=== PATIENT | male | born 1965 | race Caucasian/White ===

== ENCOUNTER 2017-02-20 10:07 | Emergency (ER) | payer MEDICARE ==
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
[2017-02-20] MEDS ORDERED: Norflex 60 MG/2 ML IM ONE (10:54)
[2017-02-20] MEDS ORDERED: TORAdol 30 mg Injection IM ONE (10:54)
--- NOTE | 2017-02-20 11:20 | XRAY ---
Indication: Chronic mid thoracic pain. Comparison: None Frontal/lateral thoracic spine demonstrates 12 typical rib-bearing thoracic vertebral segments with mild multilevel bridging/nonbridging endplate osteophytes, mild dextroscoliosis, and previous lower cervical fusion surgery. No other bony, articular, or soft tissue abnormalities. Impression: Nonacute thoracic spine with chronic features.
--- NOTE | 2017-02-20 11:24 | XRAY ---
Indication: Chronic low back pain. Right radiculopathy. Comparison: November 17, 2013. 5 views of the lumbar spine again demonstrates 5 lumbar vertebral segments, mild bilateral L5-S1 degenerative facet arthropathy, minimal L5-S1 disc space narrowing, and minimal L4/L5 endplate spurring. Again negative for acute fracture, subluxation, or pars interarticularis defect. Again noted cholecystomy clips. Impression: Stable nonacute lumbar spine with chronic features.
[2017-02-20] MEDS ORDERED: Norflex 60 MG/2 ML ONE (11:25)
[2017-02-20] MEDS ORDERED: TORAdol 30 mg Injection ONE (11:25)
[2017-02-20 12:14] VITALS: BP 128/84; PULSE 78; O2SAT 100
== END 2017-02-20 12:14 | disposition home or self-care (01) ==
LOC: ED 10:07
DX: M54.16 Radiculopathy, lumbar region (principal); G89.29 Other chronic pain
CPT/HCPCS: 72072; 72110; 99284; J1885; J2360

== ENCOUNTER 2017-08-07 13:51 | Emergency (ER) | payer MEDICARE ==
--- NOTE | 2017-08-07 14:18 | ERPHSYRPT ---
- History of Present Illness Time Seen by Provider: 08/07/17 14:13 Source: patient Exam Limitations: no limitations Patient Subjective Stated Complaint: PT states "Two days ago I started to get dizzy. I am also having some chest pressure with some slight pain in my left shoulder blade. The last time I felt this way I had low sodium." Triage Nursing Assessment: PT alert and oriented X 3, skin pale, cool, diphoretic. pt ambulates without difficulty, able to speak in full sentences, clear speech, CSM X 4. Physician History: The patient is a morbidly obese 51-year-old male complaining of dizziness for the past 3 days. He states he also has emotional lability where he wants to cry at any moment. He also has some mild chest pressure for the last 3 days as well. He thinks that it may be caused by his in her ear on the right because it a week ago he was having some right ear discomfort. He had the ear looked at by his doctor and nothing abnormal was found at that time. He says 5 years ago he had something similar to this dizziness when he had low sodium. He denies nausea or vomiting. He denies shortness of breath. His past medical history is significant for pulmonary sarcoidosis, coronary artery disease, [place], diabetes, hypertension, high cholesterol, and depression. Timing/Duration: day(s) (3) Severity: moderate Modifying Factors: Improves With: movement Associated Symptoms: chest pain (pressure), No nausea, No vomiting, No abdominal pain, No shortness of breath Allergies/Adverse Reactions: niacin Allergy (Mild, Verified 11/17/13 15:02) Penicillins Allergy (Mild, Verified 08/07/17 14:06) Home Medications: Amlodipine Besylate 5 mg [Norvasc 5 mg] 5 mg PO DAILY 02/15/13 [History] Lisinopril 10 mg [Zestril 10 MG] 10 mg PO DAILY 02/15/13 [History] Metformin HCl 1000 mg [Glucophage 1000 MG] 1,000 mg PO BID 02/15/13 [History] Metoprolol Succinate 100 mg [Toprol Xl 100 MG] 100 mg PO BID 02/15/13 [ History] Venlafaxine HCl [Effexor] 75 mg PO DAILY 11/17/13 [History] Empagliflozin [Jardiance] 10 mg PO 02/20/17 [History] Empagliflozin [Jardiance] 25 mg PO 02/20/17 [History] Exenatide Microspheres [Bydureon] 02/20/17 [History] Insulin Aspart [Novolog Flexpen] 40 units IM 02/20/17 [History] Pregabalin [Lyrica] 150 mg PO DAILY 02/20/17 [History] Rosuvastatin Calcium 20 mg PO DAILY 02/20/17 [History] Triamterene/Hydrochlorothiazid [Triamterene-Hctz 37.5-25 mg Cp] 02/20/17 [ History] Hx Tetanus, Diphtheria Vaccination/Date Given: Yes Hx Influenza Vaccination/Date Given: Yes Hx Pneumococcal Vaccination/Date Given: No Immunizations Up to Date: Yes - Review of Systems Constitutional: No Fever, No Chills Eyes: No Symptoms Ears, Nose, & Throat: Ear Pain Respiratory: No Cough, No Dyspnea Cardiac: Chest Pain Abdominal/Gastrointestinal: No Abdominal Pain, No Nausea, No Vomiting, No Diarrhea Genitourinary Symptoms: No Symptoms Musculoskeletal: No Back Pain, No Neck Pain Skin: No Rash Neurological: Dizziness Psychological: No Symptoms Endocrine: No Symptoms Hematologic/Lymphatic: No Symptoms Immunological/Allergic: No Symptoms All Other Systems: Reviewed and Negative - Past Medical History Pertinent Past Medical History: Yes Neurological History: No Pertinent History ENT History: No Pertinent History Cardiac History: Hypertension, Myocardial Infarction ([place]) Respiratory History: Sleep Apnea, Other Endocrine Medical History: Diabetes Type II, Hypothyroidism Musculoskeletal History: Degenerative Disk Disease GI Medical History: No Pertinent History History: No Pertinent History Psycho-Social History: Anxiety, Depression Male Reproductive Disorders: No Pertinent History Other Medical History: sarcadosis - Past Surgical History Past Surgical History: Yes Cardiac: No Pertinent History Gastrointestinal: Cholecystectomy Genitourinary: No Pertinent History Musculoskeletal: Orthopedic Surgery Male Surgical History: No Pertinent History Other Surgical History: C5-C6 NECK SURGERY. BILAT SHOULDER SURGERY. CARDIAC CATH X3. - Social History Smoking Status: Current every day smoker How long have you smoked: years Exposure to second hand smoke: Yes Alcohol Use: None Drug Use: none Patient Lives Alone: No Significant Family History: diabetes, hypertension - Nursing Vital Signs Nursing Vital Signs: Initial Vital Signs Temperature 98.9 F 08/07/17 13:55 Pulse Rate 90 08/07/17 13:55 Respiratory Rate 20 08/07/17 13:55 Blood Pressure 130/73 08/07/17 13:55 O2 Sat by Pulse Oximetry 97 08/07/17 13:55 Pain Scale Pain Intensity 2 - Physical Exam General Appearance: no apparent distress, alert Eye Exam: PERRL/EOMI, eyes nml inspection Ears, Nose, Throat Exam: normal ENT inspection, TMs normal, pharynx normal, moist mucous membranes Neck Exam: normal inspection, non-tender, supple, full range of motion Respiratory Exam: normal breath sounds, lungs clear, No respiratory distress Cardiovascular Exam: regular rate/rhythm, normal heart sounds, normal peripheral pulses Gastrointestinal/Abdomen Exam: soft, normal bowel sounds, No tenderness, No mass Rectal Exam: not done Back Exam: normal inspection, normal range of motion, No CVA tenderness, No vertebral tenderness Extremity Exam: normal inspection, normal range of motion, pelvis stable Neurologic Exam: alert, oriented x 3, cooperative, normal mood/affect, nml cerebellar function, nml station & gait, sensation nml, No motor deficits Skin Exam: normal color, warm, dry, No rash Lymphatic Exam: No adenopathy SpO2 Interpretation: normal SpO2: 96 Oxygen Delivery: Room Air - Course EKG Interpreted by Me: RATE, Sinus Rhythm, Left Hague Deviation, Right Bundle Branch Block, NORMAL ST-T - Radiology Exams Chest X-ray Interpretation: Teleradiologist Report, Negative (per Dr Guzmán.) Ordered Tests: Active Orders 24 hr Category Date Time Status Interventional Physician STAT Care 08/07/17 14:03 Active EKG-ER Only STAT Care 08/07/17 14:03 Active IV Insertion STAT Care 08/07/17 14:03 Active Pulse Oximetry (ED) STAT Care 08/07/17 14:03 Active CHEST 2 VIEWS (PA AND LAT) Stat Exams 08/07/17 14:18 Completed CBC W DIFF Stat Lab 08/07/17 14:15 Completed CMP Stat Lab 08/07/17 14:15 Completed Lactic Acid Stat Lab 08/07/17 14:35 Completed TROPONIN Q3H Lab 08/07/17 14:15 Completed TROPONIN Q3H Lab 08/07/17 17:30 Ordered TROPONIN Q3H Lab 08/07/17 20:30 Ordered TROPONIN Q3H Lab 08/07/17 23:30 Ordered TROPONIN Q3H Lab 08/08/17 02:30 Ordered UA W/RFX UR CULTURE Stat Lab 08/07/17 14:50 Completed Urine Triage Profile Stat Lab 08/07/17 14:18 Received Lab/Rad Data: Laboratory Result Diagrams 08/07/17 14:15 08/07/17 14:15 Laboratory Results 08/07/17 08/07/17 08/07/17 Range/Units 14:50 14:35 14:15 WBC (4.0-10.5) K/mm3 RBC (4.1-5.6) M/mm3 Hgb (12.5-18.0) gm/dl Hct (42-50) % MCV (78-100) fl MCH (26-32) pg MCHC (32-36) g/dl RDW (11.5-14.0) % Plt Count (150-450) K/mm3 MPV (6-9.5) fl Gran % (36.0-66.0) % Lymphocytes % (24.0-44.0) % Monocytes % (0.0-12.0) % Eosinophils % (0.00-5.0) % Basophils % (0.0-0.4) % Basophils # (0-0.4) Sodium (136-145) mEq/L Potassium (3.5-5.1) mEq/L Chloride (98-107) mEq/L Carbon Dioxide (21-32) mEq/L Anion Gap (5-15) MEQ/L BUN (9-20) mg/dL Creatinine (0.55-1.30) mg/dl Estimated GFR ML/MIN Glucose (70-110) MG/DL Lactic Acid 1.6 (0.4-2.0) Calcium (8.5-10.1) mg/dL Total Bilirubin (0.2-1.0) mg/dL AST (15-37) U/L ALT (12-78) U/L Alkaline Phosphatase (46-116) U/L Troponin I < 0.017 (0.000-0.056) ng/ml Serum Total Protein (6.4-8.2) gm/dL Albumin (3.4-5.0) g/dL Ur Collection Type VOID Urine Color YELLOW (YELLOW) Urine Appearance CLEAR (CLEAR) Urine pH 5.0 (5-6) Ur Specific [place] 1.015 (1.005-1.025) Urine Protein NEGATIVE (Negative) Urine Ketones NEGATIVE (NEGATIVE) Urine Blood NEGATIVE (0-5) Louis/ul Urine Nitrite NEGATIVE (NEGATIVE) Urine Bilirubin NEGATIVE (NEGATIVE) Urine Urobilinogen NORMAL (0-1) mg/dL Ur Leukocyte Esterase NEGATIVE (NEGATIVE) Urine Glucose 1000 (NEGATIVE) mg/dL Specimen Received 08/07/17 1450 08/07/17 08/07/17 Range/Units 14:15 14:15 WBC 5.5 (4.0-10.5) K/mm3 RBC 5.41 (4.1-5.6) M/mm3 Hgb 15.3 (12.5-18.0) gm/dl Hct 45.6 (42-50) % MCV 84.3 (78-100) fl MCH 28.3 (26-32) pg MCHC 33.6 (32-36) g/dl RDW 15.2 H (11.5-14.0) % Plt Count 188 (150-450) K/mm3 MPV 9.7 H (6-9.5) fl Gran % 58.7 (36.0-66.0) % Lymphocytes % 22.0 L (24.0-44.0) % Monocytes % 15.0 H (0.0-12.0) % Eosinophils % 3.8 (0.00-5.0) % Basophils % 0.5 (0.0-0.4) % Basophils # 0.03 (0-0.4) Sodium 142 (136-145) mEq/L Potassium 4.1 (3.5-5.1) mEq/L Chloride 105 (98-107) mEq/L Carbon Dioxide 25.1 (21-32) mEq/L Anion Gap 15.7 H (5-15) MEQ/L BUN 11 (9-20) mg/dL Creatinine 0.89 (0.55-1.30) mg/dl Estimated GFR > 60 ML/MIN Glucose 149 H (70-110) MG/DL Lactic Acid (0.4-2.0) Calcium 9.3 (8.5-10.1) mg/dL Total Bilirubin 0.60 (0.2-1.0) mg/dL AST 34 (15-37) U/L ALT 43 (12-78) U/L Alkaline Phosphatase 60 (46-116) U/L Troponin I (0.000-0.056) ng/ml Serum Total Protein 7.7 (6.4-8.2) gm/dL Albumin 4.0 (3.4-5.0) g/dL Ur Collection Type Urine Color (YELLOW) Urine Appearance (CLEAR) Urine pH (5-6) Ur Specific [place] (1.005-1.025) Urine Protein (Negative) Urine Ketones (NEGATIVE) Urine Blood (0-5) Louis/ul Urine Nitrite (NEGATIVE) Urine Bilirubin (NEGATIVE) Urine Urobilinogen (0-1) mg/dL Ur Leukocyte Esterase (NEGATIVE) Urine Glucose (NEGATIVE) mg/dL Specimen Received - Progress Progress: unchanged Counseled pt/family regarding: lab results, diagnosis, rad results - Departure Time of Disposition: 15:44 Departure Disposition: Home Clinical Impression: Labyrinthitis Condition: Stable Critical Care Time: No Referrals: PEYTON BISWSA [Primary Care Provider] - Additional Instructions: You have vertigo. Take meclizine 25 mg every 8 hours as needed for dizziness. Take prednisone 1 mg daily for 7 days. Follow-up in 2-3 days if no improvement. Prescriptions: Meclizine HCl 25 mg PO Q8H PRN PRN #10 tablet PRN Reason: Dizziness
[2017-08-07 14:42] LABS: BASOPHIL % 0.5 % (0.0-0.4); Eosinophil % 3.8 % (0.00-5.0); Granulocytes % 58.7 % (36.0-66.0); Mean Cell Volume 84.3 fl (78-100); Mean Corpuscular Hemoglobin 28.3 pg (26-32); Mean Platelet Volume 9.7 fl (6-9.5); Platelet Count 188 K/mm3 (150-450); Red Blood Count 5.41 M/mm3 (4.1-5.6); Red Cell Distribution Width 15.2 % (11.5-14.0); White Blood Count 5.5 K/mm3 (4.0-10.5)
[2017-08-07 14:58] LABS: ALKALINE PHOSPHATASE 60 U/L (46-116); ANION GAP 15.7 MEQ/L (5-15); BLOOD UREA NITROGEN 11 mg/dL (9-20); CHLORIDE 105 mEq/L (98-107); Carbon Dioxide 25.1 mEq/L (21-32); Glucose 149 MG/DL (70-110); Potassium 4.1 mEq/L (3.5-5.1); SGOT/AST 34 U/L (15-37); SGPT/ALT 43 U/L (12-78); SODIUM 142 mEq/L (136-145); Total Protein 7.7 gm/dL (6.4-8.2)
--- NOTE | 2017-08-07 15:04 | XRAY ---
Indication: Chest pressure and dizziness. Comparison: November 22, 2011. PA/lateral chest remains clear with incidental calcified granulomas. Heart is not enlarged. Vascularity normal. Bony thorax intact again with partially visualized lower cervical fusion surgery. Impression: Stable nonacute chest with chronic features.
[2017-08-07 15:08] VITALS: BP 107/67; PULSE 80
[2017-08-07 15:09] LABS: Bilirubin NEGATIVE (NEGATIVE); Collection Type VOID; Glucose 1000 mg/dL (NEGATIVE); Leukocyte Esterase NEGATIVE (NEGATIVE)
[2017-08-07 15:10] LABS: ADD URINE CULTURE? NO (NO); Blood NEGATIVE Ery/ul (0-5); COMPLETE URINE MICROSCOPIC? NO
[2017-08-07 15:49] VITALS: O2SAT 96
== END 2017-08-07 15:56 | disposition home or self-care (01) ==
LOC: ED 13:51
DX: H83.09 Labyrinthitis, unspecified ear (principal); R07.89 Other chest pain; M25.512 Pain in left shoulder; I10 Essential (primary) hypertension; I25.10 Atherosclerotic heart disease of native coronary artery without angina pectoris; I25.2 Old myocardial infarction; E78.00 Pure hypercholesterolemia, unspecified; F32.9 Major depressive disorder, single episode, unspecified; Z79.899 Other long term (current) drug therapy; Z79.84 Long term (current) use of oral hypoglycemic drugs
CPT/HCPCS: 36000; 36415; 71020; 80053; 80307; 81002; 83605; 84484; 85025; 93005; 93041; 99285

== ENCOUNTER 2017-09-17 19:54 | Emergency (ER) | payer MEDICARE ==
[2017-09-17] MEDS ORDERED: Norco 10/325 MG Tablet PO ONE (21:43)
[2017-09-17] MEDS ORDERED: NORCO 5/325 MG PO ONE (21:44)
[2017-09-17] MEDS ORDERED: KEFLEX 500 MG PO ONE (21:44)
[2017-09-17] MEDS ORDERED: KEFLEX 500 MG ONE (21:52)
[2017-09-17] MEDS ORDERED: Norco 10/325 MG Tablet ONE (21:52)
[2017-09-17] MEDS ORDERED: BACIGUENT PACKET ONE (22:00)
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
[2017-09-17] MEDS ORDERED: Adacel Vial IM ONE ×2 (23:32)
[2017-09-17 23:55] VITALS: BP 158/90; PULSE 80; O2SAT 97
== END 2017-09-17 23:55 | disposition home or self-care (01) ==
LOC: ED 19:54
PROC: 0HQCXZZ Repair Left Upper Arm Skin, External Approach (ICD-10-PCS; principal; 2017-09-17)
DX: S46.222A Laceration of muscle, fascia and tendon of other parts of biceps, left arm, initial encounter (principal); S41.152A Open bite of left upper arm, initial encounter; W54.0XXA Bitten by dog, initial encounter; Z79.899 Other long term (current) drug therapy; Z79.84 Long term (current) use of oral hypoglycemic drugs; Z79.4 Long term (current) use of insulin; I10 Essential (primary) hypertension; I25.2 Old myocardial infarction; E11.9 Type 2 diabetes mellitus without complications; E03.9 Hypothyroidism, unspecified
CPT/HCPCS: 12001; 90471; 90715; 99283; A9270-GY

== ENCOUNTER 2017-11-12 20:01 | Emergency (ER) | payer MEDICARE ==
[2017-11-12] MEDS ORDERED: SUBLIMAZE 100 MCG/2 ML IM ONE (20:34)
[2017-11-12] MEDS ORDERED: VALIUM 10 MG/2 ML SYRINGE IM ONE (20:36)
[2017-11-12 20:41] LABS: Collection Type CLEAN CATCH
[2017-11-12 20:42] LABS: ADD URINE CULTURE? NO (NO); Bilirubin NEGATIVE (NEGATIVE); Blood NEGATIVE Ery/ul (0-5); COMPLETE URINE MICROSCOPIC? NO; Glucose 1000 mg/dL (NEGATIVE); Leukocyte Esterase NEGATIVE (NEGATIVE)
--- NOTE | 2017-11-12 20:43 | ERPHSYRPT ---
- History of Present Illness Time Seen by Provider: 11/12/17 20:27 Source: patient Exam Limitations: no limitations Patient Subjective Stated Complaint: Pt sts right upper back pain x 3 days that radiates around to right chest and down right arm. Reports hx of degenerative disc disease and has similar happen approx 1 time per year. Denies specific injury. Reports the pain makes it hard for him to take a deep breath. Reports worse with palpation. Triage Nursing Assessment: Pt alert, oriented, answers all questions appropriately. Skin pink, warm, dry. Resps non-labored. Pt ambulatory to tx room , steady gait noted. Pain with palpation of right posterior shoulder area. Limited ROM noted right arm at shoulder. Physician History: Pt started c/o right upper and lower back pain since 2 days ago, after he woke up. He denies fall, other injury, he has had similar pain in the past, denies surgery or recent accident, no fever, chills, chest pain, SOB, productive cough , fever or vomiting. His right lower back pain has been radiating to his right buttock, denies leg weakness, numbness,. loss of bladder or bowel control. He tried Motrin today without any relief. Timing/Duration: day(s) (3) Method of Injury: unknown Quality: sharp Back Pain Location: T-spine, lumbar spine Back Pain Radiation: buttocks Severity of Pain-Max: severe Severity of Pain-Current: severe Modifying Factors: Improves With: immobilization, movement Associated Symptoms: No fever, No urinary incontinence, No loss of bowel control , No nausea, No vomiting, No problems urinating, No sensory/motor loss Previous symptoms: same symptoms as today Allergies/Adverse Reactions: niacin Allergy (Mild, Verified 11/12/17 20:29) Penicillins Allergy (Mild, Verified 11/12/17 20:29) Home Medications: Amlodipine Besylate 5 mg [Norvasc 5 mg] 5 mg PO DAILY 02/15/13 [History] Lisinopril 10 mg [Zestril 10 MG] 10 mg PO DAILY 02/15/13 [History] Metformin HCl 1000 mg [Glucophage 1000 MG] 1,000 mg PO BID 02/15/13 [History] Metoprolol Succinate 100 mg [Toprol Xl 100 MG] 100 mg PO BID 02/15/13 [ History] Venlafaxine HCl [Effexor] 75 mg PO DAILY 11/17/13 [History] Empagliflozin [Jardiance] 10 mg PO 02/20/17 [History] Empagliflozin [Jardiance] 25 mg PO 02/20/17 [History] Exenatide Microspheres [Bydureon] 02/20/17 [History] Insulin Aspart [Novolog Flexpen] 40 units IM 02/20/17 [History] Pregabalin [Lyrica] 150 mg PO DAILY 02/20/17 [History] Rosuvastatin Calcium 20 mg PO DAILY 02/20/17 [History] Triamterene/Hydrochlorothiazid [Triamterene-Hctz 37.5-25 mg Cp] 02/20/17 [ History] Hx Tetanus, Diphtheria Vaccination/Date Given: Yes Hx Influenza Vaccination/Date Given: Yes Hx Pneumococcal Vaccination/Date Given: No Immunizations Up to Date: Yes - Review of Systems Constitutional: No Symptoms Musculoskeletal: Back Pain All Other Systems: Reviewed and Negative - Past Medical History Pertinent Past Medical History: Yes Neurological History: No Pertinent History ENT History: No Pertinent History Cardiac History: Hypertension, Myocardial Infarction ([place]) Respiratory History: Sleep Apnea, Other Endocrine Medical History: Diabetes Type II, Hypothyroidism Musculoskeletal History: Degenerative Disk Disease GI Medical History: No Pertinent History History: No Pertinent History Psycho-Social History: Anxiety, Depression Male Reproductive Disorders: No Pertinent History Other Medical History: sarcadosis - Past Surgical History Past Surgical History: Yes Cardiac: No Pertinent History Gastrointestinal: Cholecystectomy Genitourinary: No Pertinent History Musculoskeletal: Orthopedic Surgery Male Surgical History: No Pertinent History Other Surgical History: C5-C6 NECK SURGERY. BILAT SHOULDER SURGERY. CARDIAC CATH X3. - Social History Smoking Status: Current every day smoker How long have you smoked: 0.5 Exposure to second hand smoke: No Alcohol Use: None Drug Use: none Patient Lives Alone: No Significant Family History: diabetes, hypertension - Nursing Vital Signs Nursing Vital Signs: Initial Vital Signs Temperature 99.5 F 11/12/17 20:18 Pulse Rate 90 11/12/17 20:18 Respiratory Rate 20 11/12/17 20:18 Blood Pressure 176/92 11/12/17 20:18 O2 Sat by Pulse Oximetry 97 11/12/17 20:18 Pain Scale Pain Intensity [Right Upper 10 Back] Pain Intensity 5 - Physical Exam General Appearance: no apparent distress Eye Exam: eyes nml inspection Ears, Nose, Throat Exam: normal ENT inspection Neck Exam: normal inspection, non-tender, supple Respiratory Exam: normal breath sounds, lungs clear, airway intact, No chest tenderness Cardiovascular Exam: regular rate/rhythm, normal heart sounds, normal peripheral pulses, No murmur Gastrointestinal Exam: soft, normal bowel sounds, No tenderness, No distention, No mass, No guarding Back Exam: normal inspection, decreased range of motion, muscle spasm (right paralumbar, parathotracic area), other (positive straight leg raising on right at 25 degrees, DTR: 3+ equal bilaterally.), No CVA tenderness, No vertebral tenderness, No rash Extremity Exam: normal inspection, No calf tenderness, No deformities, No christine' s sign, No swelling Neurologic Exam: alert, oriented x 3, cooperative, early childhood specialist II-XII nml as tested, normal mood/affect, No motor deficits Skin Exam: normal color, warm, dry, No rash SpO2: 97 Oxygen Delivery: Room Air - Course Nursing assessment & vital signs reviewed: Yes EKG Interpreted by Me: RATE, Left [place] Deviation, Right Bundle Branch Block, Non -specific ST Changes - Radiology Exams Chest X-ray Interpretation: Interpreted by me, Negative L-Spine X-ray Interpretation: Interpreted by me, Other (DJD) - CT Exams Chest CT Interpretation: Negative Ordered Tests: Active Orders 24 hr Category Date Time Status Clean Catch Urine Specimen STAT Care 11/12/17 22:15 Active EKG-ER Only STAT Care 11/12/17 20:40 Active CHEST 2 VIEWS (PA AND LAT) Stat Exams 11/12/17 21:13 Taken CHEST WITH CONTRAST [CT] Stat Exams 11/12/17 22:04 Taken LUMBAR LIMITED (2 OR 3 VIEWS) Stat Exams 11/12/17 20:35 Taken CBC W DIFF Stat Lab 11/12/17 21:28 Completed CMP Stat Lab 11/12/17 21:28 Completed D-DIMER QUANTITATION Stat Lab 11/12/17 21:28 Completed PROTIME WITH INR Stat Lab 11/12/17 21:28 Completed TROPONIN Q3H Lab 11/12/17 21:28 Completed UA W/RFX UR CULTURE Stat Lab 11/12/17 20:40 Completed Urine Triage Profile Stat Lab 11/12/17 20:40 Completed Medication Summary Discontinued Medications Generic Name Dose Route Start Last Admin Trade Name Emerald PRN Reason Stop Dose Admin Diazepam 5 mg 11/12/17 20:36 11/12/17 20:51 Valium 10 Mg/2 Ml Syringe IM 11/12/17 20:37 Not Given STAT ONE Fentanyl Citrate 75 mcg 11/12/17 20:34 11/12/17 21:09 Sublimaze 100 Mcg/2 Ml IM 11/12/17 20:35 75 mcg STAT ONE Administration Fentanyl Citrate Confirm 11/12/17 20:53 Sublimaze 100 Mcg/2 Ml Administered 11/12/17 20:54 Dose 100 mcg .ROUTE .STK-MED ONE Fentanyl Citrate 50 mcg 11/12/17 22:03 11/12/17 22:10 Sublimaze 100 Mcg/2 Ml IV 11/12/17 22:04 50 mcg STAT ONE Administration Fentanyl Citrate Confirm 11/12/17 22:08 Sublimaze 100 Mcg/2 Ml Administered 11/12/17 22:09 Dose 100 mcg .ROUTE .STK-MED ONE Sodium Chloride 1,000 mls @ 999 mls/hr 11/12/17 22:05 11/12/17 22:10 Sodium Chloride 0.9% 1000 Ml IV 11/12/17 23:05 999 mls/hr .Q1H1M STA Administration Sodium Chloride Confirm 11/12/17 22:08 Sodium Chloride 0.9% 1000 Ml Administered 11/12/17 22:09 Dose 1,000 mls @ ud .ROUTE .STK-MED ONE Orphenadrine Citrate 60 mg 11/12/17 20:49 11/12/17 21:09 Norflex 60 Mg/2 Ml IM 11/12/17 20:50 60 mg STAT ONE Administration Orphenadrine Citrate Confirm 11/12/17 20:53 Norflex 60 Mg/2 Ml Administered 11/12/17 20:54 Dose 60 mg .ROUTE .STK-MED ONE Lab/Rad Data: Laboratory Result Diagrams 11/12/17 21:28 11/12/17 21:28 Laboratory Results 11/12/17 11/12/17 11/12/17 Range/Units 21:28 21:28 21:28 WBC (4.0-10.5) K/mm3 RBC (4.1-5.6) M/mm3 Hgb (12.5-18.0) gm/dl Hct (42-50) % MCV (78-100) fl MCH (26-32) pg MCHC (32-36) g/dl RDW (11.5-14.0) % Plt Count (150-450) K/mm3 MPV (6-9.5) fl Gran % (36.0-66.0) % Lymphocytes % (24.0-44.0) % Monocytes % (0.0-12.0) % Eosinophils % (0.00-5.0) % Basophils % (0.0-0.4) % Basophils # (0-0.4) INR 1.01 (0.8-3.0) D-Dimer 705.78 H* (0-500) ng/mL Sodium 141 (136-145) mEq/L Potassium 3.7 (3.5-5.1) mEq/L Chloride 106 (98-107) mEq/L Carbon Dioxide 28.1 (21-32) mEq/L Anion Gap 10.7 (5-15) MEQ/L BUN 17 (9-20) mg/dL Creatinine 1.04 (0.55-1.30) mg/dl Estimated GFR > 60 ML/MIN Glucose 158 H (70-110) MG/DL Calcium 9.0 (8.5-10.1) mg/dL Total Bilirubin 0.30 (0.2-1.0) mg/dL AST 16 (15-37) U/L ALT 28 (12-78) U/L Alkaline Phosphatase 57 (46-116) U/L Troponin I < 0.017 (0.000-0.056) ng/ml Serum Total Protein 6.9 (6.4-8.2) gm/dL Albumin 3.4 (3.4-5.0) g/dL Ur Collection Type Urine Color (YELLOW) Urine Appearance (CLEAR) Urine pH (5-6) Ur Specific Queen (1.005-1.025) Urine Protein (Negative) Urine Ketones (NEGATIVE) Urine Blood (0-5) Louis/ul Urine Nitrite (NEGATIVE) Urine Bilirubin (NEGATIVE) Urine Urobilinogen (0-1) mg/dL Ur Leukocyte Esterase (NEGATIVE) Urine Culture Reflexed (NO) Urine Glucose (NEGATIVE) mg/dL Urine Opiates Level (NEGATIVE) Ur Methadone (NEGATIVE) Urine Barbiturates (NEGATIVE) Ur Phencyclidine (PCP) (NEGATIVE) Urine Amphetamine (NEGATIVE) U Benzodiazepine Level (NEGATIVE) Urine Cocaine (NEGATIVE) Urine Marijuana (THC) (NEGATIVE) Specimen Received 11/12/17 11/12/17 11/12/17 Range/Units 21:28 20:40 20:40 WBC 7.3 (4.0-10.5) K/mm3 RBC 4.69 (4.1-5.6) M/mm3 Hgb 13.4 (12.5-18.0) gm/dl Hct 40.8 L (42-50) % MCV 87.0 (78-100) fl MCH 28.6 (26-32) pg MCHC 32.8 (32-36) g/dl RDW 14.5 H (11.5-14.0) % Plt Count 185 (150-450) K/mm3 MPV 9.8 H (6-9.5) fl Gran % 68.1 H (36.0-66.0) % Lymphocytes % 15.3 L (24.0-44.0) % Monocytes % 13.4 H (0.0-12.0) % Eosinophils % 2.7 (0.00-5.0) % Basophils % 0.5 (0.0-0.4) % Basophils # 0.04 (0-0.4) INR (0.8-3.0) D-Dimer (0-500) ng/mL Sodium (136-145) mEq/L Potassium (3.5-5.1) mEq/L Chloride (98-107) mEq/L Carbon Dioxide (21-32) mEq/L Anion Gap (5-15) MEQ/L BUN (9-20) mg/dL Creatinine (0.55-1.30) mg/dl Estimated GFR ML/MIN Glucose (70-110) MG/DL Calcium (8.5-10.1) mg/dL Total Bilirubin (0.2-1.0) mg/dL AST (15-37) U/L ALT (12-78) U/L Alkaline Phosphatase (46-116) U/L Troponin I (0.000-0.056) ng/ml Serum Total Protein (6.4-8.2) gm/dL Albumin (3.4-5.0) g/dL Ur Collection Type CLEAN CATCH Urine Color YELLOW (YELLOW) Urine Appearance CLEAR (CLEAR) Urine pH 7.0 (5-6) Ur Specific Queen 1.010 (1.005-1.025) Urine Protein NEGATIVE (Negative) Urine Ketones NEGATIVE (NEGATIVE) Urine Blood NEGATIVE (0-5) Louis/ul Urine Nitrite NEGATIVE (NEGATIVE) Urine Bilirubin NEGATIVE (NEGATIVE) Urine Urobilinogen NORMAL (0-1) mg/dL Ur Leukocyte Esterase NEGATIVE (NEGATIVE) Urine Culture Reflexed NO (NO) Urine Glucose 1000 (NEGATIVE) mg/dL Urine Opiates Level NEG. (NEGATIVE) Ur Methadone NEG. (NEGATIVE) Urine Barbiturates NEG. (NEGATIVE) Ur Phencyclidine (PCP) NEG. (NEGATIVE) Urine Amphetamine NEG. (NEGATIVE) U Benzodiazepine Level NEG. (NEGATIVE) Urine Cocaine NEG. (NEGATIVE) Urine Marijuana (THC) POS. (NEGATIVE) Specimen Received [id number] - Progress Progress: improved Progress Note: 11/12/17 23:56 Pt has been comfortable, pain improved, denies chest pain or shortness of breath , no fever. I discussed our results with him and his , and the plan to discharge him. He has appointment with his doctor in 2 days, on Sunday. All questions answered, he is stable to be discharged, suggested to rest x 2-3 days , apply moist heat to painful muscles, return if severe pain, shortness oif breath, or fever, otherwise follow up with PCP as scheduled. - Departure Time of Disposition: 23:58 Departure Disposition: Home Clinical Impression: Back muscle spasm, Lumbar radiculopathy, chronic Condition: Stable Critical Care Time: No Referrals: PEYTON BISWAS [Primary Care Provider] - Instructions: Low Back Pain, Back Pain With Sciatica Additional Instructions: Rest x 2-3 days, apply moist heat to painful muscles, return if severe pain, shortness of breath, vomiting, fever> 102 F! Follow up with your doctor as scheduled on Sunday, in 2 days! Do not take Metformin for 2 days ! Prescriptions: Tramadol HCl [Ultram 50 mg Tablet] 50 mg PO Q6H PRN PRN #10 tablet PRN Reason: Pain Cyclobenzaprine HCl [Flexeril] 10 mg PO TID #30 tablet
[2017-11-12] MEDS ORDERED: Norflex 60 MG/2 ML IM ONE (20:49)
[2017-11-12] MEDS ORDERED: SUBLIMAZE 100 MCG/2 ML ONE ×2 (20:53→22:08)
[2017-11-12] MEDS ORDERED: Norflex 60 MG/2 ML ONE (20:53)
[2017-11-12 21:35] LABS: BASOPHIL % 0.5 % (0.0-0.4); Eosinophil % 2.7 % (0.00-5.0); Granulocytes % 68.1 % (36.0-66.0); Lymphocytes % 15.3 % (24.0-44.0); Mean Corpuscular Hemoglobin 28.6 pg (26-32); Mean Platelet Volume 9.8 fl (6-9.5); Monocytes % 13.4 % (0.0-12.0); Platelet Count 185 K/mm3 (150-450); Red Blood Count 4.69 M/mm3 (4.1-5.6); Red Cell Distribution Width 14.5 % (11.5-14.0); White Blood Count 7.3 K/mm3 (4.0-10.5)
[2017-11-12 21:50] LABS: INR 1.01 (0.8-3.0); PROTIME 11.2 SECONDS (8.83-12.87)
[2017-11-12 21:53] LABS: ALBUMIN 3.4 g/dL (3.4-5.0); ALKALINE PHOSPHATASE 57 U/L (46-116); ANION GAP 10.7 MEQ/L (5-15); BLOOD UREA NITROGEN 17 mg/dL (9-20); CHLORIDE 106 mEq/L (98-107); Carbon Dioxide 28.1 mEq/L (21-32); Glucose 158 MG/DL (70-110); Potassium 3.7 mEq/L (3.5-5.1); SGOT/AST 16 U/L (15-37); SGPT/ALT 28 U/L (12-78); SODIUM 141 mEq/L (136-145); Total Protein 6.9 gm/dL (6.4-8.2)
[2017-11-12] MEDS ORDERED: SUBLIMAZE 100 MCG/2 ML IV ONE (22:03)
[2017-11-12] MEDS ORDERED: Sodium Chloride 0.9% 1000 ML 1,000 ML IV STA (22:05)
[2017-11-12] MEDS ORDERED: Sodium Chloride 0.9% 1000 ML 1,000 ML ONE (22:08)
[2017-11-12 23:31] VITALS: BP 137/76; PULSE 72
[2017-11-13 00:01] VITALS: O2SAT 97
--- NOTE | 2017-11-13 09:01 | XRAY ---
Indication: Short of breath, pain, and elevated d-dimer. Multiple contiguous axial images obtained through the chest using 80 cc Isovue 370 contrast and PE protocol. Comparison: None There is satisfactory opacification of the pulmonary arteries to include the lobar and segmental branches. No filling defect or pulmonary embolus. Heart is not enlarged. Aorta is normal in course and caliber. A few centimeter/subcentimeter mediastinal lymph nodes. 2.0 x 2.5 cm right subcarinal lymph node. Minimal right perihilar prominent lymph nodes, largest 1.6 x 1.5 cm. Examination of the lung parenchyma demonstrates minimal bilateral dependent atelectasis and minimal atelectasis/scarring in the right middle lobe and lingula. Right upper lobe calcified granuloma. No suspicious pulmonary mass, infiltrate, or effusion. Bony thorax intact with mild degenerative changes throughout the spine. Limited upper abdomen demonstrates fatty liver and previous cholecystectomy. Impression: 1. Negative pulmonary embolus. Scattered atelectasis/scarring and a calcified granuloma. No acute cardiopulmonary abnormalities. 2. Nonspecific minimal mediastinal and right hilar adenopathy. 3. Fatty liver. Comment: Preliminary interpretation was made by [facility]. No discrepancy. CT DI 28.13
--- NOTE | 2017-11-13 09:03 | XRAY ---
Indication: Right back/right shoulder spasms 3 days. History sarcoidosis. Comparison: August 07, 2017. PA/lateral chest remains clear with incidental calcified granuloma. Heart is not enlarged. Vascularity normal. Bony thorax intact again with mild degenerative changes and lower cervical fusion surgery. Impression: Stable nonacute chest with chronic features.
--- NOTE | 2017-11-13 09:06 | XRAY ---
Indication: Low back pain Comparison: February 20, 2017. 3 views of the lumbar spine unchanged again demonstrating minimal multilevel thoracolumbar endplate spurring, mild L5-S1 degenerative facet arthropathy, and minimal L5-S1 degenerative disc space narrowing. No new/acute findings.
== END 2017-11-13 00:12 | disposition home or self-care (01) ==
LOC: ED 20:01
DX: M62.830 Muscle spasm of back (principal); M54.16 Radiculopathy, lumbar region; G89.29 Other chronic pain; M54.6 Pain in thoracic spine; M54.5 Low back pain; Z79.899 Other long term (current) drug therapy; E11.9 Type 2 diabetes mellitus without complications; I10 Essential (primary) hypertension; I25.2 Old myocardial infarction; E03.9 Hypothyroidism, unspecified; Z79.84 Long term (current) use of oral hypoglycemic drugs; Z79.4 Long term (current) use of insulin
CPT/HCPCS: 36000; 36415; 71020; 71260; 72100; 80053; 80307; 81002; 84484; 85025; 85379; 85610; 93005; 96360; 96372; 99284; J2360; J3010

== ENCOUNTER 2021-03-02 06:00 | Day surgery (SDC) | payer MEDICARE ==
[2021-03-02] MEDS ORDERED: Lactated Ringers 1,000 ML IV SCH (07:00)
[2021-03-02] MEDS ORDERED: DIPRIVAN 200 MG/20 ML IV ONE (07:21)
[2021-03-02] MEDS ORDERED: Xylocaine-Mpf 2% 5 Ml Vial ONE (07:26)
--- NOTE | 2021-03-02 08:15 | OP ---
SURGERY DATE/TIME: 03/02/2021720 PREOPERATIVE DIAGNOSIS: Screening colonoscopy. POSTOPERATIVE DIAGNOSIS: Sigmoid colon polyps x4. PROCEDURE: Colonoscopy. SURGEON: Kirby Rose M.D. ANESTHESIA: MAC by Moi Renner CRNA. ESTIMATED BLOOD LOSS: Minimal. SPECIMENS: Four hot forceps polypectomies from the sigmoid colon. DESCRIPTION OF PROCEDURE: After informed written consent was obtained, the patient was taken to the endoscopy suite. He was placed in left lateral decubitus position. Anesthesia was titrated to desired level of consciousness. Digital rectal exam showed normal sphincter tone and no internal lesions. The scope was inserted into the rectum and sequentially traversed to the level of the cecum. The cecum was reached and verified with direct visualization of ileocecal valve. Upon withdrawal there were no obvious mucosal abnormalities but there were scattered diverticula encountered at the level of the sigmoid colon mostly. There were four small sessile polyps all in the distal sigmoid colon which were grasped with forceps cauterized and removed in its entirety and sent together for pathology in the same container due to the close proximity. Prior to withdrawal retroflexion showed no obvious internal lesions. The scope was removed and the patient was transferred to the recovery room in good condition.
[2021-03-02 08:36] VITALS: BP 125/91; PULSE 88; O2SAT 97
== END 2021-03-02 08:47 | disposition home or self-care (01) ==
LOC: SDC 06:00
PROVIDERS: ATTEND Family Medicine
DX: Z12.11 Encounter for screening for malignant neoplasm of colon (principal); E11.9 Type 2 diabetes mellitus without complications; I10 Essential (primary) hypertension; Z79.899 Other long term (current) drug therapy; K63.5 Polyp of colon; K57.30 Diverticulosis of large intestine without perforation or abscess without bleeding
CPT/HCPCS: 82947; 88305; J2704

== ENCOUNTER 2021-12-23 14:23 | Emergency (ER) | payer MEDICARE ==
[2021-12-23] MEDS ORDERED: solu-MEDROL 125 MG, Sterile H2O 10 ml 2 ML IV ONE ×2 (14:43)
[2021-12-23] MEDS ORDERED: HYDROCODONE-ACETAMIN 2.5-108/5 ML SOLUTION PO STA (14:43)
[2021-12-23] MEDS ORDERED: Sodium Chloride 0.9% 1000 ML 1,000 ML IV SCH (14:45)
[2021-12-23] MEDS ORDERED: solu-MEDROL ONE (14:56)
[2021-12-23] MEDS ORDERED: HYDROCODONE-ACETAMIN 2.5-108/5 ML SOLUTION ONE (14:56)
[2021-12-23] MEDS ORDERED: Sterile H2O 10 ml IJ ONE (14:56)
[2021-12-23] MEDS ORDERED: Sodium Chloride 0.9% 1000 ML 1,000 ML ONE (14:56)
--- NOTE | 2021-12-23 14:56 | ERPHSYRPT ---
- History of Present Illness Time Seen by Provider: 12/23/21 14:30 Source: patient Exam Limitations: no limitations Patient Subjective Stated Complaint: PT HERE FOR INCRESASE SOB, COUGH, WAS COVID POSITIVE 12/15 Triage Nursing Assessment: PT ARRIVED PER WC,ALERT, RESP EASY, FACE MASK IN PLACE, HAS CONGESTED SOUNDING COUGH, SKIN W/D/P Physician History: This is a 56-year-old overweight white male with a history of diabetes, hypertension, depression, elevated cholesterol, sarcoidosis and who was diagnosed 8 days ago with COVID-19 infection. His symptoms of cough and shortness of breath are worsening. He has not had any chest pain per se. He has no abdominal pain. He has no nausea vomiting or diarrhea. He arrives to the emergency department afebrile with a room air oxygenation of 98%. Timing/Duration: day(s) (8), worse Cough Quality/Degree: mild, dry cough Possible Cause: no prior episodes Modifying Factors: Improves With: activity, coughing Associated Symptoms: cough, shortness of breath (Mostly with exertion), No fever Allergies/Adverse Reactions: niacin Allergy (Mild, Verified 12/23/21 14:48) Anaphylactic Reaction states "had a real seizure" Penicillins Allergy (Mild, Verified 12/23/21 14:48) Hives at a young age Home Medications: Amlodipine Besylate 5 mg [Norvasc 5 mg] 5 mg PO BID 02/15/13 [History] Lisinopril 10 mg [Zestril 10 MG] 40 mg PO DAILY 02/15/13 [History] Metformin HCl 1000 mg [Glucophage 1000 MG] 1,000 mg PO BID 02/15/13 [History] Metoprolol Succinate 100 mg [Toprol Xl 100 MG] 50 mg PO BID 02/15/13 [History] Venlafaxine HCl [Effexor] 75 mg PO DAILY 11/17/13 [History] Pregabalin [Lyrica] 150 mg PO BID 02/20/17 [History] Atorvastatin Calcium [Lipitor] 20 mg PO DAILY 02/22/21 [History] Clonazepam 0.5 mg [Klonopin 0.5 MG] 0.5 mg PO UD 02/22/21 [History] Testosterone Cypionate 0.25 ml IM UD 02/22/21 [History] Triamterene/Hydrochlorothiazid [Triamterene-Hctz 37.5-25 mg Tb] 37.5 mg PO DAILY 02/22/21 [History] Venlafaxine HCl [Effexor Xr] 150 mg PO DAILY 02/22/21 [History] Hx Tetanus, Diphtheria Vaccination/Date Given: Yes Hx Influenza Vaccination/Date Given: Yes Hx Pneumococcal Vaccination/Date Given: Yes Immunizations Up to Date: Yes Travel Risk - International Travel Have you traveled outside of the country in past 3 weeks: No - Coronavirus Screening Are you exhibiting any of the following symptoms?: Yes Symptoms: Cough: New Onset, Shortness of Breath, Headaches/Body Aches/Fatigue - Vaccine Status Have you recieved a Covid-19 vaccination: Yes 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 - Review of Systems Constitutional: No Symptoms Eyes: No Symptoms Ears, Nose, & Throat: No Symptoms Respiratory: Cough, Dyspnea Cardiac: No Symptoms (With exertion) Abdominal/Gastrointestinal: No Symptoms Genitourinary Symptoms: No Symptoms Musculoskeletal: Arthralgias, Myalgias Skin: No Symptoms Neurological: No Symptoms Psychological: No Symptoms Endocrine: No Symptoms Hematologic/Lymphatic: No Symptoms Immunological/Allergic: No Symptoms All Other Systems: Reviewed and Negative - Past Medical History Pertinent Past Medical History: Yes Neurological History: No Pertinent History ENT History: No Pertinent History Cardiac History: Myocardial Infarction ([place]), Hypertension Respiratory History: Sleep Apnea, Other Endocrine Medical History: Diabetes Type II, Hypothyroidism Musculoskeletal History: Degenerative Disk Disease GI Medical History: No Pertinent History History: No Pertinent History Psycho-Social History: Depression, Anxiety Male Reproductive Disorders: No Pertinent History Other Medical History: sarcadosis - Past Surgical History Past Surgical History: Yes Neuro Surgical History: No Pertinent History Cardiac: No Pertinent History Respiratory: No Pertinent History Gastrointestinal: Cholecystectomy Genitourinary: No Pertinent History Musculoskeletal: Orthopedic Surgery Male Surgical History: No Pertinent History Other Surgical History: C4-C5 NECK SURGERY (fusion) . BILAT SHOULDER SURGERY( release of pinched nerves) CARDIAC CATH X3.( last one in 2018), L4, L5, S1 surgery - Social History Smoking Status: Current every day smoker How long have you smoked: 0.5 Exposure to second hand smoke: No Alcohol Use: None Drug Use: marijuana Patient Lives Alone: Yes Significant Family History: diabetes, hypertension - Nursing Vital Signs Nursing Vital Signs: Initial Vital Signs Respiratory Rate 18 12/23/21 14:24 O2 Sat by Pulse Oximetry 98 12/23/21 14:24 Pain Scale Pain Intensity 1 - Physical Exam General Appearance: no apparent distress, alert, anxiety, obese Eye Exam: PERRL/EOMI, eyes nml inspection Ears, Nose, Throat Exam: normal ENT inspection, pharynx normal, moist mucous membranes Neck Exam: normal inspection, non-tender, supple, full range of motion Respiratory Exam: normal breath sounds, lungs clear, airway intact, No chest tenderness, No respiratory distress Cardiovascular Exam: regular rate/rhythm, normal heart sounds, normal peripheral pulses Gastrointestinal/Abdomen Exam: soft, normal bowel sounds, No tenderness Rectal Exam: not done Back Exam: normal inspection, normal range of motion, No CVA tenderness, No vertebral tenderness Extremity Exam: normal inspection, normal range of motion, pelvis stable Neurologic Exam: alert, oriented x 3, cooperative, nutritional chemist II-XII nml as tested, normal mood/affect, nml cerebellar function, nml station & gait, sensation nml Skin Exam: normal color, warm, dry Lymphatic Exam: No adenopathy SpO2 Interpretation: normal SpO2: 98 O2 Delivery: Room Air - Course Nursing assessment & vital signs reviewed: Yes Ordered Tests: Active Orders 24 hr Category Date Time Status EKG-ER Only STAT Care 12/23/21 14:41 Active IV Insertion STAT Care 12/23/21 14:41 Active Isolation, Initiate & Maintain STAT Care 12/23/21 14:42 Active Pulse Oximetry (ED) STAT Care 12/23/21 14:41 Active CHEST 1 VIEW (PORTABLE) Stat Exams 12/23/21 14:55 Completed CHEST WITH CONTRAST [CT] Stat Exams 12/23/21 15:17 Completed BLOOD CULTURE Stat Lab 12/23/21 03:09 Received CBC W DIFF Stat Lab 12/23/21 14:45 Completed CMP Stat Lab 12/23/21 14:41 Completed D-DIMER QUANTITATIVE Stat Lab 12/23/21 14:45 Completed INFLUENZA A+B ROJAS Stat Lab 12/23/21 03:11 Completed Lactic Acid Stat Lab 12/23/21 14:49 Completed Tensas Screen Stat Lab 12/23/21 14:45 Completed TROPONIN Q3H Lab 12/23/21 14:45 Completed TROPONIN Q3H Lab 12/23/21 17:45 Ordered TROPONIN Q3H Lab 12/23/21 20:45 Ordered TROPONIN Q3H Lab 12/23/21 23:45 Ordered TROPONIN Q3H Lab 12/24/21 02:45 Ordered UA W/RFX UR CULTURE Stat Lab 12/23/21 14:42 Completed Medication Summary Generic Name Dose Route Start Last Admin Trade Name Freq PRN Reason Stop Dose Admin Sodium Chloride 1,000 mls @ 100 mls/hr 12/23/21 14:45 12/23/21 15:00 Sodium Chloride 0.9% 1000 Ml IV 01/22/22 14:44 100 mls/hr .Q10H BRYAN Administration Discontinued Medications Generic Name Dose Route Start Last Admin Trade Name Freq PRN Reason Stop Dose Admin Hydrocodone Bitart/Acetaminophen 10 ml 12/23/21 14:43 12/23/21 15:01 Hydrocodone/Acetaminophen 5 Ml Udcup PO 12/23/21 14:44 10 ml STAT STA Administration Hydrocodone Bitart/Acetaminophen Confirm 12/23/21 14:56 Hydrocodone/Acetaminophen 5 Ml Udcup Administered 12/23/21 14:57 Dose 10 ml .ROUTE .STK-MED ONE Methylprednisolone Sodium 0 mg 12/23/21 14:43 12/23/21 15:00 Succinate 125 mg/ Sterile IV 12/23/21 14:44 125 mg Water 2 ml STAT ONE Administration Methylprednisolone Sodium Succinate Confirm 12/23/21 14:56 Methylprednis Sod Succ 125 Mg/2 Ml Vial Administered 12/23/21 14:57 Dose 125 mg .ROUTE .STK-MED ONE Sterile Water Confirm 12/23/21 14:56 Water For Injection,Sterile 10 Ml Vial Administered 12/23/21 14:57 Dose 10 ml IJ .STK-MED ONE Lab/Rad Data: Laboratory Result Diagrams 12/23/21 14:45 12/23/21 14:41 Laboratory Results 12/23/21 12/23/21 12/23/21 Range/Units 14:49 14:45 14:45 WBC (4.0-10.5) K/mm3 RBC (4.1-5.6) M/mm3 Hgb (12.5-18.0) gm/dl Hct (42-50) % MCV (78-100) fl MCH (26-32) pg MCHC (32-36) g/dl RDW (11.5-14.0) % Plt Count (150-450) K/mm3 MPV (7.5-11.0) fl Gran % (36.0-66.0) % Eos # (Auto) (0-0.5) Absolute Lymphs (auto) (1.0-4.6) Absolute Monos (auto) (0.0-1.3) Lymphocytes % (24.0-44.0) % Monocytes % (0.0-12.0) % Eosinophils % (0.00-5.0) % Basophils % (0.0-0.4) % Absolute Granulocytes (1.4-6.9) Basophils # (0-0.4) D-Dimer (215-500) ng/mL Sodium (137-145) mmol/L Potassium (3.5-5.1) mmol/L Chloride (98-107) mmol/L Carbon Dioxide (22-30) mmol/L Anion Gap (5-15) MEQ/L BUN (9-20) mg/dL Creatinine (0.66-1.25) mg/dL Estimated GFR ML/MIN Glucose (74-106) mg/dL Lactic Acid 3.1 H (0.4-2.0) Calcium (8.4-10.2) mg/dL Total Bilirubin (0.2-1.3) mg/dL AST (17-59) U/L ALT (0-50) U/L Alkaline Phosphatase (38-126) U/L Troponin I < 0.012 (0.000-0.034) ng/mL Serum Total Protein (6.3-8.2) g/dL Albumin (3.5-5.0) g/dL Urine Color (YELLOW) Urine Appearance (CLEAR) Urine pH (5-6) Ur Specific [place] (1.005-1.025) Urine Protein (Negative) Urine Ketones (NEGATIVE) Urine Blood (0-5) Louis/ul Urine Nitrite (NEGATIVE) Urine Bilirubin (NEGATIVE) Urine Urobilinogen (0-1) mg/dL Ur Leukocyte Esterase (NEGATIVE) Urine WBC (Auto) (0-5) /HPF U Epithel Cells (Auto) (FEW) /HPF Urine Mucus (Auto) (NEGATIVE) /HPF Urine Culture Reflexed (NO) Urine Glucose (NEGATIVE) mg/dL Monoscreen NEGATIVE (Negative) Influenza Type A Ag (NEGATIVE) Influenza Type B Ag (NEGATIVE) Group A Strep Antibody (NEGATIVE) 12/23/21 12/23/21 12/23/21 Range/Units 14:45 14:45 14:42 WBC 7.1 (4.0-10.5) K/mm3 RBC 5.52 (4.1-5.6) M/mm3 Hgb 15.2 (12.5-18.0) gm/dl Hct 45.8 (42-50) % MCV 83.0 (78-100) fl MCH 27.5 (26-32) pg MCHC 33.2 (32-36) g/dl RDW 14.7 H (11.5-14.0) % Plt Count 260 (150-450) K/mm3 MPV 9.6 (7.5-11.0) fl Gran % 72.1 H (36.0-66.0) % Eos # (Auto) 0.11 (0-0.5) Absolute Lymphs (auto) 0.99 L (1.0-4.6) Absolute Monos (auto) 0.84 (0.0-1.3) Lymphocytes % 14.0 L (24.0-44.0) % Monocytes % 11.9 (0.0-12.0) % Eosinophils % 1.6 (0.00-5.0) % Basophils % 0.4 (0.0-0.4) % Absolute Granulocytes 5.11 (1.4-6.9) Basophils # 0.03 (0-0.4) D-Dimer 865 H* (215-500) ng/mL Sodium (137-145) mmol/L Potassium (3.5-5.1) mmol/L Chloride (98-107) mmol/L Carbon Dioxide (22-30) mmol/L Anion Gap (5-15) MEQ/L BUN (9-20) mg/dL Creatinine (0.66-1.25) mg/dL Estimated GFR ML/MIN Glucose (74-106) mg/dL Lactic Acid (0.4-2.0) Calcium (8.4-10.2) mg/dL Total Bilirubin (0.2-1.3) mg/dL AST (17-59) U/L ALT (0-50) U/L Alkaline Phosphatase (38-126) U/L Troponin I (0.000-0.034) ng/mL Serum Total Protein (6.3-8.2) g/dL Albumin (3.5-5.0) g/dL Urine Color YELLOW (YELLOW) Urine Appearance CLEAR (CLEAR) Urine pH 5.0 (5-6) Ur Specific [place] 1.020 (1.005-1.025) Urine Protein 30 (Negative) Urine Ketones TRACE (NEGATIVE) Urine Blood NEGATIVE (0-5) Louis/ul Urine Nitrite NEGATIVE (NEGATIVE) Urine Bilirubin SMALL (NEGATIVE) Urine Urobilinogen 2 (0-1) mg/dL Ur Leukocyte Esterase NEGATIVE (NEGATIVE) Urine WBC (Auto) 0-2 (0-5) /HPF U Epithel Cells (Auto) NONE (FEW) /HPF Urine Mucus (Auto) SLIGHT (NEGATIVE) /HPF Urine Culture Reflexed NO (NO) Urine Glucose NEGATIVE (NEGATIVE) mg/dL Monoscreen (Negative) Influenza Type A Ag (NEGATIVE) Influenza Type B Ag (NEGATIVE) Group A Strep Antibody (NEGATIVE) 12/23/21 12/23/21 12/23/21 Range/Units 14:41 03:11 03:11 WBC (4.0-10.5) K/mm3 RBC (4.1-5.6) M/mm3 Hgb (12.5-18.0) gm/dl Hct (42-50) % MCV (78-100) fl MCH (26-32) pg MCHC (32-36) g/dl RDW (11.5-14.0) % Plt Count (150-450) K/mm3 MPV (7.5-11.0) fl Gran % (36.0-66.0) % Eos # (Auto) (0-0.5) Absolute Lymphs (auto) (1.0-4.6) Absolute Monos (auto) (0.0-1.3) Lymphocytes % (24.0-44.0) % Monocytes % (0.0-12.0) % Eosinophils % (0.00-5.0) % Basophils % (0.0-0.4) % Absolute Granulocytes (1.4-6.9) Basophils # (0-0.4) D-Dimer (215-500) ng/mL Sodium 140 (137-145) mmol/L Potassium 3.9 (3.5-5.1) mmol/L Chloride 106 (98-107) mmol/L Carbon Dioxide 23 (22-30) mmol/L Anion Gap 15.9 H (5-15) MEQ/L BUN 7 L (9-20) mg/dL Creatinine 0.68 (0.66-1.25) mg/dL Estimated GFR > 60.0 ML/MIN Glucose 151 H (74-106) mg/dL Lactic Acid (0.4-2.0) Calcium 9.5 (8.4-10.2) mg/dL Total Bilirubin 0.80 (0.2-1.3) mg/dL AST 28 (17-59) U/L ALT 35 (0-50) U/L Alkaline Phosphatase 77 (38-126) U/L Troponin I (0.000-0.034) ng/mL Serum Total Protein 7.2 (6.3-8.2) g/dL Albumin 4.4 (3.5-5.0) g/dL Urine Color (YELLOW) Urine Appearance (CLEAR) Urine pH (5-6) Ur Specific [place] (1.005-1.025) Urine Protein (Negative) Urine Ketones (NEGATIVE) Urine Blood (0-5) Louis/ul Urine Nitrite (NEGATIVE) Urine Bilirubin (NEGATIVE) Urine Urobilinogen (0-1) mg/dL Ur Leukocyte Esterase (NEGATIVE) Urine WBC (Auto) (0-5) /HPF U Epithel Cells (Auto) (FEW) /HPF Urine Mucus (Auto) (NEGATIVE) /HPF Urine Culture Reflexed (NO) Urine Glucose (NEGATIVE) mg/dL Monoscreen (Negative) Influenza Type A Ag NEG (NEGATIVE) Influenza Type B Ag NEG (NEGATIVE) Group A Strep Antibody NOT DETECTED (NEGATIVE) - Progress Progress: improved, re-examined Air Movement: good Progress Note: 12/23/21 16:21 Chest x-ray shows no acute cardiopulmonary process. Chest CT with contrast shows no pulmonary embolus. There are changes consistent with sarcoidosis. No infiltrate present. Blood Culture(s) Obtained: Yes Antibiotics given: No Counseled pt/family regarding: lab results, diagnosis, need for follow-up, [place] - Departure Departure Disposition: Home Clinical Impression: COVID-19 virus infection Condition: Stable Critical Care Time: No Referrals: PEYTON HOPKINS [Primary Care Provider] - Follow up/PCP as directed Prescriptions: Hydrocodone/Acetaminophen [Hydrocodone-Acetamn 7.5-325/15] 10 ml PO Q8H PRN PRN #120 ml MDD 30 ml PRN Reason: Cough Prednisone 10 mg [Deltasone 10 mg] 10 mg PO TID #12 tablet
[2021-12-23 14:57] LABS: ALBUMIN 4.4 g/dL (3.5-5.0); ALKALINE PHOSPHATASE 77 U/L (38-126); ANION GAP 15.9 MEQ/L (5-15); BLOOD UREA NITROGEN 7 mg/dL (9-20); CHLORIDE 106 mmol/L (98-107); Calcium 9.5 mg/dL (8.4-10.2); Carbon Dioxide 23 mmol/L (22-30); Creatinine 1 0.68 mg/dL (0.66-1.25); EST GLOMERULAR FILTRATION RATE > 60.0 ML/MIN; Glucose 151 mg/dL (74-106); Potassium 3.9 mmol/L (3.5-5.1); SGOT/AST 28 U/L (17-59); SGPT/ALT 35 U/L (0-50); SODIUM 140 mmol/L (137-145); Total Protein 7.2 g/dL (6.3-8.2)
[2021-12-23 15:02] LABS: Absolute Neutrophil Ct (ANC) 5.11 (1.4-6.9); Basophil (Absolute #) 0.03 (0-0.4); Eosinophil % 1.6 % (0.00-5.0); Eosinophil (Absolute #) 0.11 (0-0.5); Hematocrit 45.8 % (42-50); Hemoglobin 15.2 gm/dl (12.5-18.0); Lymphocyte (Absolute #) 0.99 (1.0-4.6); Mean Corpuscular Hemoglobin 27.5 pg (26-32); Mean Corpuscular Hgb Concent. 33.2 g/dl (32-36); Mean Platelet Volume 9.6 fl (7.5-11.0); Monocyte (Absolute #) 0.84 (0.0-1.3); Monocytes % 11.9 % (0.0-12.0); Neutrophil % 72.1 % (36.0-66.0); Platelet Count 260 K/mm3 (150-450); Red Blood Count 5.52 M/mm3 (4.1-5.6); Red Cell Distribution Width 14.7 % (11.5-14.0); White Blood Count 7.1 K/mm3 (4.0-10.5)
--- NOTE | 2021-12-23 15:04 | XRAY ---
Indication: Short of breath. Positive Covid 19. History sarcoidosis. Comparison: November 12, 2017. Portable apical lordotic chest remains clear again with incidental tiny right lung calcified granuloma. Heart not enlarged for AP portable technique. Bony thorax intact again with mild degenerative changes and lower cervical fusion hardware. Impression: Continued nonacute chest with chronic features.
[2021-12-23 15:15] LABS: Appearance CLEAR (CLEAR); Bilirubin SMALL (NEGATIVE); Blood NEGATIVE Ery/ul (0-5); Glucose NEGATIVE (NEGATIVE); Ketones TRACE (NEGATIVE); Leukocyte Esterase NEGATIVE (NEGATIVE); Mucus SLIGHT /HPF (NEGATIVE); Nitrite NEGATIVE (NEGATIVE); Protein,Urine Dip 30 (Negative); Urobilinogen 2 mg/dL (0-1); WBC 0-2 /HPF (0-5)
[2021-12-23 15:53] LABS: INFLUENZA A NEG (NEGATIVE); INFLUENZA B NEG (NEGATIVE)
--- NOTE | 2021-12-23 16:11 | XRAY ---
Indication: Short of breath. Positive Covid 19. Elevated d-dimer. History of sarcoidosis. Multiple contiguous axial images obtained through the chest using Isovue 370 contrast and PE protocol. Comparison: November 12, 2017. There is good opacification of the pulmonary arteries to include the lobar and segmental branches. No pulmonary embolus. Heart not enlarged. Aorta is normal in course and caliber. Minimally enlarging prominent bilateral hilar adenopathy favoring clinically reported sarcoidosis. Largest right hilar adenopathy measures 1.7 x 2.4 cm and the largest left measures 2.4 x 1.6 cm. Stable tiny right suprahilar calcified nodes. Lungs inflated with again minimal right middle lobe subsegmental atelectasis/scarring and tiny right upper lobe peripheral calcified granuloma. No suspicious pulmonary mass, infiltrate, or effusion. Bony thorax intact again with mild degenerative changes throughout the spine. Limited upper abdomen again demonstrates fatty liver and cholecystectomy clips. Impression: 1. Continued negative pulmonary embolus. 2. Minimally enlarging prominent bilateral hilar adenopathy favoring clinically reported sarcoidosis. 3. Again incidental fatty liver, chronic bony findings, and old granulomatous disease.
[2021-12-23 16:15] VITALS: BP 194/109; PULSE 86
[2021-12-23 16:22] VITALS: O2SAT 98
[2021-12-23] MEDS ORDERED: Zofran 4 MG/2 ML VIAL ONE (16:31)
[2021-12-23] MEDS ORDERED: Zofran 4 MG/2 ML VIAL IV ONE (16:32)
== END 2021-12-23 16:35 | disposition home or self-care (01) ==
LOC: ED 14:23
DX: U07.1 COVID-19 (principal); R05.9 Cough, unspecified; R06.02 Shortness of breath; E11.9 Type 2 diabetes mellitus without complications; Z79.84 Long term (current) use of oral hypoglycemic drugs; I10 Essential (primary) hypertension; F32.A Depression, unspecified; E78.5 Hyperlipidemia, unspecified; D86.9 Sarcoidosis, unspecified; Z79.899 Other long term (current) drug therapy; Z72.0 Tobacco use; Z79.891 Long term (current) use of opiate analgesic; Z79.52 Long term (current) use of systemic steroids
CPT/HCPCS: 36000; 36415; 71045; 71260; 80053; 81001; 83605; 84484; 85025; 85379; 86308; 87040; 87400; 87651; 93005; 94760; 96374; 96376; 99284; J2405; J2930; A9270-GY

== ENCOUNTER 2022-10-22 12:10 | Emergency (ER) | payer MEDICARE ==
--- NOTE | 2022-10-22 12:30 | ERPHSYRPT ---
- History of Present Illness Time Seen by Provider: 10/22/22 12:30 Source: patient Physician History: This is a 57-year-old white male patient who has a history of diabetes, hyperlipidemia and hypertension and presents with 3 to 4-day history of sore throat, cough, sinus pressure, and right earache. Patient has a history of recurrent strep pharyngitis. His son currently has similar symptoms. Patient did take an [id number] COVID test which was negative. Patient continues to smoke cigarettes daily. Patient denies chest pain. He denies shortness of breath. He said no nausea vomiting or diarrhea. He has no abdominal pain complaints. Timing/Duration: day(s) (3 to 4 days) Cough Quality/Degree: mild Possible Cause: occasional episodes Modifying Factors: Improves With: coughing Associated Symptoms: cough, sore throat, No chest pain/soreness, No shortness of breath Allergies/Adverse Reactions: niacin Allergy (Mild, Verified 10/22/22 13:38) Anaphylactic Reaction states "had a real seizure" Penicillins Allergy (Mild, Verified 10/22/22 13:38) Hives at a young age Home Medications: Amlodipine Besylate 5 mg [Norvasc 5 mg] 5 mg PO BID 02/15/13 [History] Lisinopril 10 mg [Zestril 10 MG] 40 mg PO DAILY 02/15/13 [History] Metformin HCl 1000 mg [Glucophage 1000 MG] 1,000 mg PO BID 02/15/13 [History] Metoprolol Succinate 100 mg [Toprol Xl 100 MG] 50 mg PO BID 02/15/13 [History] Venlafaxine HCl [Effexor] 75 mg PO DAILY 11/17/13 [History] Pregabalin [Lyrica] 150 mg PO BID 02/20/17 [History] Atorvastatin Calcium [Lipitor] 20 mg PO DAILY 02/22/21 [History] Clonazepam 0.5 mg [Klonopin 0.5 MG] 0.5 mg PO UD 02/22/21 [History] Testosterone Cypionate 0.25 ml IM UD 02/22/21 [History] Triamterene/Hydrochlorothiazid [Triamterene-Hctz 37.5-25 mg Tb] 37.5 mg PO DAILY 02/22/21 [History] Venlafaxine HCl [Effexor Xr] 150 mg PO DAILY 02/22/21 [History] Hx Tetanus, Diphtheria Vaccination/Date Given: Yes Hx Influenza Vaccination/Date Given: Yes Hx Pneumococcal Vaccination/Date Given: Yes Travel Risk - International Travel Have you traveled outside of the country in past 3 weeks: No - Coronavirus Screening Are you exhibiting any of the following symptoms?: Yes Symptoms: Cough: New Onset, Headaches/Body Aches/Fatigue Close contact with a COVID-19 positive Pt in past 14-21 Days: No - Vaccine Status Have you recieved a Covid-19 vaccination: Yes 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 - Review of Systems Constitutional: No Symptoms Eyes: No Symptoms Ears, Nose, & Throat: Ear Pain (Right side), Throat Pain, Other (Sinus pressure) Respiratory: Cough Cardiac: No Symptoms Abdominal/Gastrointestinal: No Symptoms Genitourinary Symptoms: No Symptoms Musculoskeletal: No Symptoms Skin: No Symptoms Neurological: No Symptoms Psychological: No Symptoms Endocrine: No Symptoms Hematologic/Lymphatic: No Symptoms Immunological/Allergic: No Symptoms All Other Systems: Reviewed and Negative - Past Medical History Pertinent Past Medical History: Yes Neurological History: No Pertinent History ENT History: No Pertinent History Cardiac History: Myocardial Infarction ([place]), Hypertension Respiratory History: Sleep Apnea, Other Endocrine Medical History: Diabetes Type II, Hypothyroidism Musculoskeletal History: Degenerative Disk Disease GI Medical History: No Pertinent History History: No Pertinent History Psycho-Social History: Depression, Anxiety Male Reproductive Disorders: No Pertinent History Other Medical History: sarcadosis - Past Surgical History Past Surgical History: Yes Neuro Surgical History: No Pertinent History Cardiac: No Pertinent History Respiratory: No Pertinent History Gastrointestinal: Cholecystectomy Genitourinary: No Pertinent History Musculoskeletal: Orthopedic Surgery Male Surgical History: No Pertinent History Other Surgical History: C4-C5 NECK SURGERY (fusion) . BILAT SHOULDER SURGERY( release of pinched nerves) CARDIAC CATH X3.( last one in 2018), L4, L5, S1 surgery - Social History Smoking Status: Current every day smoker How long have you smoked: 0.5 Exposure to second hand smoke: No Alcohol Use: None Drug Use: marijuana Patient Lives Alone: Yes Significant Family History: diabetes, hypertension - Nursing Vital Signs Nursing Vital Signs: Initial Vital Signs Temperature 98.3 F 10/22/22 13:23 Pulse Rate 57 L 10/22/22 13:23 Blood Pressure 185/117 10/22/22 13:23 O2 Sat by Pulse Oximetry 98 10/22/22 13:23 Pain Scale Pain Intensity 4 - Physical Exam General Appearance: no apparent distress, alert, anxiety Eye Exam: PERRL/EOMI, eyes nml inspection Ears, Nose, Throat Exam: normal ENT inspection, moist mucous membranes Neck Exam: normal inspection, non-tender, supple, full range of motion Respiratory Exam: normal breath sounds, lungs clear, airway intact, No chest tenderness, No respiratory distress Cardiovascular Exam: regular rate/rhythm, normal heart sounds, normal peripheral pulses Gastrointestinal/Abdomen Exam: No tenderness Rectal Exam: not done Back Exam: normal inspection, normal range of motion, No CVA tenderness, No vertebral tenderness Extremity Exam: normal inspection, normal range of motion, pelvis stable Neurologic Exam: alert, oriented x 3, cooperative, cook soup II-XII nml as tested, normal mood/affect, nml cerebellar function, nml station & gait, sensation nml Skin Exam: normal color, warm, dry Lymphatic Exam: No adenopathy SpO2 Interpretation: normal O2 Delivery: Room Air - Course Nursing assessment & vital signs reviewed: Yes Lab/Rad Data: Laboratory Results 10/22/22 10/22/22 Range/Units 14:05 14:05 Influenza Type A Ag NEGATIVE (NEGATIVE) Influenza Type B Ag NEGATIVE (NEGATIVE) RSV (PCR) NEGATIVE (Negative) SARS-CoV-2 (PCR) NEGATIVE (NEGATIVE) Group A Strep Antibody NOT DETECTED (NEGATIVE) - Departure Departure Disposition: Home Clinical Impression: Cough, Viral illness Condition: Stable Critical Care Time: No Referrals: PEYTON HOPKINS [Primary Care Provider] - Follow up/PCP as directed Additional Instructions: Drink plenty of fluids. Take your medication as prescribed. Follow-up with your primary care provider for further evaluation and management.
[2022-10-22 14:12] VITALS: BP 181/112
[2022-10-22 14:57] LABS: INFLUENZA A NEGATIVE (NEGATIVE); INFLUENZA B NEGATIVE (NEGATIVE); RESPIRATORY SYNCTIAL VIRUS NEGATIVE (Negative); SARS-CoV-2 Xpert Express NEGATIVE (NEGATIVE)
[2022-10-22 15:11] VITALS: PULSE 63; O2SAT 96
[2022-10-22] MEDS ORDERED: Levofloxacin 500 MG Tablet PO ONE (15:24)
[2022-10-22] MEDS ORDERED: solu-MEDROL 125 MG, Sterile H2O 10 ml 2 ML IM ONE ×2 (15:24)
[2022-10-22] MEDS ORDERED: solu-MEDROL ONE (15:47)
[2022-10-22] MEDS ORDERED: Levofloxacin 500 MG Tablet ONE (15:47)
== END 2022-10-22 15:13 | disposition home or self-care (01) ==
LOC: ED 12:10
DX: B34.9 Viral infection, unspecified (principal); R05.1 Acute cough; J40 Bronchitis, not specified as acute or chronic; R59.0 Localized enlarged lymph nodes; J02.9 Acute pharyngitis, unspecified; H92.01 Otalgia, right ear; E11.9 Type 2 diabetes mellitus without complications; E78.5 Hyperlipidemia, unspecified; I10 Essential (primary) hypertension; Z72.0 Tobacco use; Z79.84 Long term (current) use of oral hypoglycemic drugs; Z79.899 Other long term (current) drug therapy; Z79.52 Long term (current) use of systemic steroids
CPT/HCPCS: 0241U; 87651; 96372; 99283; J2930; A9270-GY